=== PATIENT | male | born 1975 | race Caucasian/White ===

== ENCOUNTER 2016-11-25 22:59 | Emergency (ER) | payer SELFPAY ==
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
== END 2016-11-26 00:46 | disposition disaster alternative care site (69) ==
LOC: GACC 22:59
PROC: 0BH17EZ Insertion of Endotracheal Airway into Trachea, Via Natural or Artificial Opening (ICD-10-PCS; principal; 2016-11-26)
PROC: 0T9B70Z Drainage of Bladder with Drainage Device, Via Natural or Artificial Opening (ICD-10-PCS; 2016-11-26)
DX: S11.90XA Unspecified open wound of unspecified part of neck, initial encounter (principal); S29.9XXA Unspecified injury of thorax, initial encounter; F17.210 Nicotine dependence, cigarettes, uncomplicated; W32.0XXA Accidental handgun discharge, initial encounter
CPT/HCPCS: J2543; J2704; J3010; J7050